=== PATIENT | male | born 1995 ===

== ENCOUNTER 2017-06-20 10:10 | Emergency (ER) | payer OTHER ==
[2017-06-20] MEDS ORDERED: Ondansetron TAB* 4 MG PO ONE (11:59)
[2017-06-20] MEDS ORDERED: Ibuprofen TAB* 600 MG PO ONE (11:59)
[2017-06-20 12:01] VITALS: BP 108/60
[2017-06-20] MEDS ORDERED: Ondansetron ODT TAB* 4 MG PO ONE (12:02)
[2017-06-20] MEDS ORDERED: Acetaminophen TAB* 325 MG PO ONE (12:02)
--- NOTE | 2017-06-20 12:40 | UC ---
FLU HPI - HPI Summary HPI Summary: 2-3 days of chills and congestion and myalgias. Today it is the worst. he has been taking Motrin. He feels nauseous now. Denies chronic medical conditions or lung disease. - History of Current Complaint Chief Complaint: UCGeneralIllness Stated Complaint: COUGH, ACHES, NAUSEA, FREEMAN Time Seen by Provider: 06/20/17 12:30 Hx Obtained From: Patient Onset/Duration: Gradual Onset, Lasting Days Severity Currently: Moderate Severity Initially: Moderate Pain Intensity: 6 Associated Signs & Symptoms: Positive: Fever, Myalgia, Cough, Sore Throat, Nasal Congestion, Headache - Allergy/Home Medications Allergies/Adverse Reactions: Allergies Allergy/AdvReac Type Severity Reaction Status Date / Time No Known Allergies Allergy Verified 06/20/17 11:53 Home Medications: Home Medications Ascorbic Acid TAB* [Vitamin C TAB*] 500 mg PO DAILY 06/20/17 [History Confirmed 06/20/17] Echinacea 400 mg PO 06/20/17 [History] Ibuprofen [Goodsense Ibuprofen] 400 mg PO 06/20/17 [History] PMH/Surg Hx/FS Hx/Imm Hx Previously Healthy: Yes - Surgical History Surgical History: Yes Surgery Procedure, Year, and Place: BILATERAL OPEN SHOULDER SURGERY - Family History Known Family History: Positive: Other - no related influenza history. - Social History Occupation: Student Alcohol Use: Occasionally Substance Use Type: None Smoking Status (MU): Never Smoked Tobacco Review of Systems Constitutional: Fever, Chills ENT: Sinus Congestion Respiratory: Cough Gastrointestinal: Nausea Musculoskeletal: Myalgia All Other Systems Reviewed And Are Negative: Yes Physical Exam Triage Information Reviewed: Yes Appearance: No Pain Distress - Non toxic. He has obvious malaise., Well- Nourished Vital Signs: Initial Vital Signs Temp 102.9 F 06/20/17 11:54 Pulse 96 06/20/17 11:54 Resp 24 06/20/17 11:54 BP 108/60 06/20/17 11:54 Pulse Ox 96 06/20/17 11:54 Vital Signs Reviewed: Yes Eyes: Positive: Conjunctiva Clear ENT: Positive: Normal ENT inspection, Pharynx normal, Nasal congestion, TMs normal, Uvula midline. Negative: Pharyngeal erythema, TM bulging, TM dull, TM red, Tonsillar swelling, Tonsillar exudate, Trismus, Muffled voice, Hoarse voice , Dental tenderness, Sinus tenderness Neck: Positive: Supple, Nontender, No Lymphadenopathy. Negative: Nuchal Rigidity Respiratory: Positive: Lungs clear, Normal breath sounds, No respiratory distress, No accessory muscle use. Negative: Respiratory distress, Decreased breath sounds, Accessory muscle use, Crackles, Rhonchi, Stridor, Wheezing Cardiovascular: Positive: No Murmur, Brisk Capillary Refill Abdomen Description: Positive: No Organomegaly, Soft. Negative: Distended, Guarding Musculoskeletal: Positive: ROM Intact, No Edema Neurological: Positive: Alert, Muscle Tone Normal. Negative: Lethargic Psychological: Positive: Age Appropriate Behavior Skin: Negative: rashes Flu Course/Dx - Course Course Of Treatment: influenza. supportive care described in detail. He will return for any worsening symptoms. - Differential Dx/Diagnosis Provider Diagnoses: influenza. Discharge - Discharge Plan Condition: Good Disposition: HOME Prescriptions: Oseltamivir CAP* [Tamiflu CAP*] 75 mg PO BID #10 cap Patient Education Materials: Influenza (ED) Forms: *School Release Referrals: Non Staff,Doctor [Primary Care Provider] -
== END 2017-06-20 12:36 | disposition home or self-care (01) ==
LOC: UCCORT 10:10
DX: J10.1 Influenza due to other identified influenza virus with other respiratory manifestations (principal)
CPT/HCPCS: 87502; 99202; A9270-GY; G0463